=== PATIENT | male | born 1965 | race Hispanic/Latino ===

== ENCOUNTER 2019-01-30 19:08 | Emergency (ER) | payer OTHER ==
[2019-01-30] MEDS ORDERED: HYDROCODONE/ACETAMINOPHEN 5/325 MG TAB ONE (19:46)
== END 2019-01-30 20:50 | disposition home or self-care (01) ==
LOC: EDH 19:08
DX: S53.491A Other sprain of right elbow, initial encounter (principal); M54.5 Low back pain; Z90.49 Acquired absence of other specified parts of digestive tract; W18.39XA Other fall on same level, initial encounter; Y93.01 Activity, walking, marching and hiking; Y92.89 Other specified places as the place of occurrence of the external cause; Y99.8 Other external cause status
CPT/HCPCS: 72100; 73080